=== PATIENT | male | born 1945 ===

== ENCOUNTER 2019-04-07 11:18 | Inpatient (IN) | payer MEDICAID ==
[2019-04-07] MEDS ORDERED: Sodium Chloride 0.9% 1,000 ML IV ONE ×3 (11:45→16:36)
[2019-04-07 11:59] LABS: BASO # 0.1 K/uL (0.0-0.2); BASO % 0.6 % (0.0-2.0); EOS # 0.2 K/uL (0.0-0.7); EOS % 2.2 % (0.0-4.0); HEMOGLOBIN 11.4 g/dL (12.0-18.0); LYMPH # 1.5 K/uL (1.0-4.3); LYMPH % 14.8 % (20.0-40.0); MEAN CELL VOLUME 86.2 fL (80.0-94.0); MEAN CORPUSCULAR HEMOGLOBIN 27.8 pg (27.0-31.0); MEAN CORPUSCULAR HGB CONC 32.3 g/dL (33.0-37.0); MEAN PLATELET VOLUME 10.8 fL (7.2-11.7); MONO # 1.2 K/uL (0.0-0.8); MONO % 12.1 % (0.0-10.0); NEUT # 7.2 K/uL (1.8-7.0); NEUT % 70.3 % (50.0-75.0); RBC 4.11 Mil/uL (4.40-5.90); RED CELL DISTRIBUTION WIDTH 16.6 % (11.5-14.5); WHITE BLOOD COUNT 10.3 K/uL (4.8-10.8)
[2019-04-07 12:04] LABS: SQUAMOUS EPITHIAL < 1 /hpf (0-5); URINE BILIRUBIN NEGATIVE (NEGATIVE); URINE BLOOD 2+ (NEGATIVE); URINE CLARITY Hazy (Clear); URINE COLOR Yellow (YELLOW); URINE GLUCOSE (UA) 3+ mg/dL (Normal); URINE LEUKOCYTE ESTERASE 3+ Leu/uL (Negative); URINE PROTEIN NEGATIVE (NEGATIVE); URINE UROBILINOGEN NORMAL mg/dL (0.2-1.0)
[2019-04-07] MEDS ORDERED: cefTRIAXone IV 1 gm in Dextros 50 ML IV ONE (12:36)
--- NOTE | 2019-04-07 12:55 | C.PDOC ---
History Of Present Illness 73-year-old male is brought to the ED by ambulance from his doctor's office for evaluation of elevated blood sugar noted prior to arrival. As per EMS, patient was found to be hiccupping and continues to do so in the ED. Patient denies fever, chills. Additional information limited because patient does not speak Persian. Time Seen by Provider: 04/07/19 11:27 Chief Complaint (Nursing): High Blood Sugar History Per: Patient History/Exam Limitations: no limitations Onset/Duration Of Symptoms: Hrs Current Symptoms Are (Timing): Still Present Additional History Per: Patient Past Medical History Reviewed: Historical Data, Nursing Documentation, Vital Signs Vital Signs: Last Vital Signs Temp 98.5 F 04/07/19 11:34 Pulse 67 04/07/19 11:34 Resp 20 04/07/19 11:34 BP 125/78 04/07/19 11:34 Pulse Ox 95 04/07/19 11:34 Primary Care Provider: Geoff De Jesus - Medical History PMH: Benign Prostatic Hyperplasia, Bronchitis, HIV, HTN, Hyperlipidemia Surgical History: Cholecystectomy Family History: States: Unknown Family Hx - Social History Hx Alcohol Use: No Hx Substance Use: No Review Of Systems Constitutional: Positive for: Other (elevated blood sugar, hiccuping ). Negative for: Fever, Chills Physical Exam - Physical Exam Appears: Non-toxic, No Acute Distress Skin: Normal Color, Warm, Dry Head: Atraumatic, Normacephalic Eye(s): bilateral: Normal Inspection Oral Mucosa: Moist Neck: Supple Chest: Symmetrical, No Deformity, No Tenderness Cardiovascular: Rhythm Regular, No Murmur Respiratory: Normal Breath Sounds, No Rales, No Rhonchi, No Wheezing Gastrointestinal/Abdominal: Soft, Tenderness (suprapubic ), No Guarding, No Rebound Extremity: Normal ROM, Capillary Refill (less than 2 seconds ) Neurological/Psych: Oriented x3, Normal Speech, Normal Cognition ED Course And Treatment - Laboratory Results Result Diagrams: 04/07/19 11:54 04/07/19 11:54 Lab Results: Troponin I < 0.0120 ng/mL (0.00-0.120) 04/07/19 11:54 Urine Color Yellow (YELLOW) 04/07/19 11:54 Urine Clarity Hazy (Clear) 04/07/19 11:54 Urine pH 6.0 (5.0-8.0) 04/07/19 11:54 Ur Specific [place] 1.022 (1.003-1.030) 04/07/19 11:54 Urine Protein Negative mg/dL (NEGATIVE) 04/07/19 11:54 Urine Glucose (UA) 3+ mg/dL (Normal) H 04/07/19 11:54 Urine Ketones Trace mg/dL (NEGATIVE) 04/07/19 11:54 Urine Blood 2+ (NEGATIVE) H 04/07/19 11:54 Urine Nitrate Negative (NEGATIVE) 04/07/19 11:54 Urine Bilirubin Negative (NEGATIVE) 04/07/19 11:54 Urine Urobilinogen Normal mg/dL (0.2-1.0) 04/07/19 11:54 Ur Leukocyte Esterase 3+ Roz/uL (Negative) H 04/07/19 11:54 Urine WBC (Auto) 179 /hpf (0-5) H 04/07/19 11:54 Urine RBC (Auto) 17 /hpf (0-3) H 04/07/19 11:54 Ur Squamous Epith Cells < 1 /hpf (0-5) 04/07/19 11:54 Lab Interpretation: Abnormal ECG: Interpreted By Nv ECG Rhythm: Sinus Rhythm ECG Interpretation: Normal Rate From EC O2 Sat by Pulse Oximetry: 95 (on RA) Pulse Ox Interpretation: Normal - CT Scan/US No standard instances Other Rad Studies (CT/US): Read By Radiologist, Radiology Report Reviewed CT/US Interpretation: FINDINGS: LOWER THORAX: Limited bilateral basilar dependent atelectasis identified with trace pericardial effusion. Cardiac size appears normal nevertheless. LIVER: Unremarkable. No gross lesion or ductal dilatation. GALLBLADDER AND BILE DUCTS: Prior cholecystectomy suggested. Clinically correlate. PANCREAS: Mildly atrophic but nonfocal pancreas. No significant peripancreatic reaction associated. SPLEEN: Unremarkable. ADRENALS: Unremarkable. No mass. KIDNEYS AND URETERS: Nonspecific limited streaky perinephric changes bilaterally. Bilateral kidneys otherwise unremarkable appearing. VASCULATURE: Unremarkable. No aortic aneurysm. No aortic atherosclerotic calcification or mural plaque present. BOWEL: Nonacute extensive sigmoid diverticular disease. Limited diverticular changes descending colon as well. No definite acute diverticulitis appreciated at this time.. No obstruction. No gross mural thickening. APPENDIX: Unremarkable. Normal appendix. PERITONEUM: Unremarkable. No free fluid. No free air. LYMPH NODES: Unremarkable. No enlarged lymph nodes. BLADDER: Urinary bladder is only mildly distended and mural thickening is not excluded. Pericystic reactive changes may indicate cystitis. Clinically correlate further. REPRODUCTIVE: Prominent prostate gland enlargement. 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 OTHER FINDINGS: None. IMPRESSION: 1. The urinary bladder is not fully distended and thickening of the wall is indeterminate however pericystic reactive changes are suspicious for cystitis. Clinically correlate further. 2. Enlarged prostate gland. 3. Nonacute left colonic diverticular changes concentrated at the sigmoid colon. 4. Nonspecific bilateral streaky perinephric changes without obstructive uropathy. 5. Prior cholecystectomy suggested. Clinically correlate. Progress Note: Bloodwork, urinalysis, CT A/P, EKG ordered and reviewed. Rocephin IV and IV Fluids given. Treated with additional IVF and Regular Insulin 5 units SQ Reassessment Condition: Improved Disposition Discussed With : Geoff De Jesus Doctor Will See Patient In The: Hospital - Disposition Disposition: HOSPITALIZED Disposition Time: 14:15 Condition: STABLE - POA Present On Arrival: None - Clinical Impression Clinical Impression: Hyperglycemia, UTI (urinary tract infection) - PA / DIVIDEND DEPOSIT VOUCHER CLERK / Resident Statement MD/DO has reviewed & agrees with the documentation as recorded. - Scribe Statement The provider has reviewed the documentation as recorded by the Scribe (Rahcel South) All medical record entries made by the Scribe were at my direction and personally dictated by me. I have reviewed the chart and agree that the record accurately reflects my personal performance of the history, physical exam, medical decision making, and the department course for this patient. I have also personally directed, reviewed, and agree with the discharge instructions and disposition. Decision To Admit - Pt Status Changed To: Hospital Disposition Of: Inpatient - Admit Certification Admit to Inpatient:: After my assessment, the patient will require hospitalization for at least two midnights. This is because of the severity of symptoms shown, intensity of services needed, and/or the medical risk in this patient being treated as an outpatient. - InPatient: Physician Admission Certification: I certify that this patient requires 2 or more midnights of care for the following reason:: Hyperglycemia. UTI - . Bed Request Type: Regular Admitting Physician: Geoff De Jesus Patient Diagnosis: Hyperglycemia, UTI (urinary tract infection)
[2019-04-07 13:03] LABS: ALB/GLOB RATIO 1.1 (1.0-2.1); ALBUMIN 3.8 g/dL (3.5-5.0); ALT/SGPT 37 U/L (21-72); AST/SGOT 39 U/L (17-59); BLOOD UREA NITROGEN 24 mg/dL (9-20); CALCIUM 9.3 mg/dl (8.6-10.4); GFR NON-AFRICAN AMERICAN 60; LIPASE 55 U/L (23-300)
--- NOTE | 2019-04-07 13:08 | CT ---
Date of service: 04/07/2019 PROCEDURE: CT Abdomen and Pelvis without intravenous contrast HISTORY: Pain COMPARISON: None. TECHNIQUE: Helical CT of the abdomen and pelvis was performed without oral or intravenous contrast as per referring physician request. Coronal and sagittal reformats were generated. Radiation dose: Total exam DLP = 484.54 mGy-cm. This CT exam was performed using one or more of the following dose reduction techniques: Automated exposure control, adjustment of the mA and/or kV according to patient size, and/or use of iterative reconstruction technique. FINDINGS: LOWER THORAX: Limited bilateral basilar dependent atelectasis identified with trace pericardial effusion. Cardiac size appears normal nevertheless. LIVER: Unremarkable. No gross lesion or ductal dilatation. GALLBLADDER AND BILE DUCTS: Prior cholecystectomy suggested. Clinically correlate. PANCREAS: Mildly atrophic but nonfocal pancreas. No significant peripancreatic reaction associated. SPLEEN: Unremarkable. ADRENALS: Unremarkable. No mass. KIDNEYS AND URETERS: Nonspecific limited streaky perinephric changes bilaterally. Bilateral kidneys otherwise unremarkable appearing. VASCULATURE: Unremarkable. No aortic aneurysm. No aortic atherosclerotic calcification or mural plaque present. BOWEL: Nonacute extensive sigmoid diverticular disease. Limited diverticular changes descending colon as well. No definite acute diverticulitis appreciated at this time.. No obstruction. No gross mural thickening. APPENDIX: Unremarkable. Normal appendix. PERITONEUM: Unremarkable. No free fluid. No free air. LYMPH NODES: Unremarkable. No enlarged lymph nodes. BLADDER: Urinary bladder is only mildly distended and mural thickening is not excluded. Pericystic reactive changes may indicate cystitis. Clinically correlate further. REPRODUCTIVE: Prominent prostate gland enlargement. 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 OTHER FINDINGS: None. IMPRESSION: 1. The urinary bladder is not fully distended and thickening of the wall is indeterminate however pericystic reactive changes are suspicious for cystitis. Clinically correlate further. 2. Enlarged prostate gland. 3. Nonacute left colonic diverticular changes concentrated at the sigmoid colon. 4. Nonspecific bilateral streaky perinephric changes without obstructive uropathy. 5. Prior cholecystectomy suggested. Clinically correlate.
[2019-04-07] MEDS ORDERED: (Novolin R) Insulin Human Regular 100 units/ml vial SC ONE ×2 (14:50→16:35)
[2019-04-07] MEDS ORDERED: (Novolin R) Insulin Human Regular 100 units/ml vial ONE ×2 (15:04→16:54)
[2019-04-07] MEDS: Sodium Chloride 0.9% 1,000 ML IV SCH (15:52)
[2019-04-07] MEDS: (Novolin R) Insulin Human Regular 100 units/ml vial SC SCH ×2 (16:53→21:52)
[2019-04-07 18:16] VITALS: RESP 20
--- NOTE | 2019-04-07 23:19 | CP.PCM.HP ---
Present on Admission - Present on Admission Any Indicators Present on Admission: Yes History of Uncontrolled Diabetes: Yes Past Patient History - Past Medical History & Family History Past Medical History?: Yes - Past Social History Smoking Status: Never Smoked - CARDIAC Hx Hypertension: Yes - PULMONARY Hx Bronchitis: Yes - NEUROLOGICAL Hx Neurological Disorder: Yes Other/Comment: VIT B12 DEF - HEENT Hx HEENT Problems: No - RENAL Hx Chronic Kidney Disease: No - ENDOCRINE/METABOLIC Hx Endocrine Disorders: Yes Hx Diabetes Mellitus Type 2: Yes - HEMATOLOGICAL/ONCOLOGICAL Hx Human Immunodeficiency Virus (HIV): Yes - INTEGUMENTARY Hx Dermatological Problems: No - MUSCULOSKELETAL/RHEUMATOLOGICAL Hx Musculoskeletal Disorders: Yes Hx Falls: No Other/Comment: VITAMIN D DEF - GASTROINTESTINAL Hx Gastrointestinal Disorders: No - GENITOURINARY/GYNECOLOGICAL Hx Genitourinary Disorders: Yes Hx Prostate Cancer: Yes - PSYCHIATRIC Hx Substance Use: No - SURGICAL HISTORY Hx Surgeries: Yes Hx Cholecystectomy: Yes Meds Allergies/Adverse Reactions: Allergies Allergy/AdvReac Type Severity Reaction Status Date / Time No Known Allergies Allergy Verified 04/07/19 11:35 Results - Vital Signs Recent Vital Signs: Last Vital Signs Temp 97.7 F 04/07/19 17:30 Pulse 74 04/07/19 17:30 Resp 20 04/07/19 17:30 BP 156/89 H 04/07/19 17:30 Pulse Ox 100 04/07/19 17:30 - Labs Result Diagrams: 04/07/19 11:54 04/07/19 11:54 Labs: Laboratory Results - last 24 hr 04/07/19 04/07/19 04/07/19 11:28 11:54 11:54 WBC 10.3 RBC 4.11 L Hgb 11.4 L Hct 35.4 MCV 86.2 MCH 27.8 MCHC 32.3 L RDW 16.6 H Plt Count 262 MPV 10.8 Neut % (Auto) 70.3 Lymph % (Auto) 14.8 L [place] % (Auto) 12.1 H Eos % (Auto) 2.2 Baso % (Auto) 0.6 Neut # (Auto) 7.2 H Lymph # (Auto) 1.5 [place] # (Auto) 1.2 H Eos # (Auto) 0.2 Baso # (Auto) 0.1 Sodium Potassium Chloride Carbon Dioxide Anion Gap BUN Creatinine Est GFR ( Amer) Est GFR (Non-Af Amer) POC Glucose (mg/dL) 475 H* Random Glucose Lactic Acid Calcium Total Bilirubin AST ALT Alkaline Phosphatase Troponin I Total Protein Albumin Globulin Albumin/Globulin Ratio Lipase Prostate Specific Ag Urine Color Yellow Urine Clarity Hazy Urine pH 6.0 Ur Specific [place] 1.022 Urine Protein Negative Urine Glucose (UA) 3+ H Urine Ketones Trace Urine Blood 2+ H Urine Nitrate Negative Urine Bilirubin Negative Urine Urobilinogen Normal Ur Leukocyte Esterase 3+ H Urine WBC (Auto) 179 H Urine RBC (Auto) 17 H Ur Squamous Epith Cells < 1 04/07/19 04/07/19 04/07/19 11:54 11:54 11:54 WBC RBC Hgb Hct MCV MCH MCHC RDW Plt Count MPV Neut % (Auto) Lymph % (Auto) [place] % (Auto) Eos % (Auto) Baso % (Auto) Neut # (Auto) Lymph # (Auto) [place] # (Auto) Eos # (Auto) Baso # (Auto) Sodium 131 L Potassium 4.7 Chloride 93 L Carbon Dioxide 28 Anion Gap 14 BUN 24 H Creatinine 1.2 Est GFR ( Amer) > 60 Est GFR (Non-Af Amer) 60 POC Glucose (mg/dL) Random Glucose 509 H* Lactic Acid 1.1 Calcium 9.3 Total Bilirubin 1.2 AST 39 ALT 37 Alkaline Phosphatase 94 Troponin I < 0.0120 Total Protein 7.2 Albumin 3.8 Globulin 3.4 Albumin/Globulin Ratio 1.1 Lipase 55 Prostate Specific Ag 27.7 H Urine Color Urine Clarity Urine pH Ur Specific [place] Urine Protein Urine Glucose (UA) Urine Ketones Urine Blood Urine Nitrate Urine Bilirubin Urine Urobilinogen Ur Leukocyte Esterase Urine WBC (Auto) Urine RBC (Auto) Ur Squamous Epith Cells 04/07/19 04/07/19 04/07/19 14:30 16:30 21:50 WBC RBC Hgb Hct MCV MCH MCHC RDW Plt Count MPV Neut % (Auto) Lymph % (Auto) [place] % (Auto) Eos % (Auto) Baso % (Auto) Neut # (Auto) Lymph # (Auto) [place] # (Auto) Eos # (Auto) Baso # (Auto) Sodium Potassium Chloride Carbon Dioxide Anion Gap BUN Creatinine Est GFR ( Amer) Est GFR (Non-Af Amer) POC Glucose (mg/dL) 416 H* 413 H* 258 H Random Glucose Lactic Acid Calcium Total Bilirubin AST ALT Alkaline Phosphatase Troponin I Total Protein Albumin Globulin Albumin/Globulin Ratio Lipase Prostate Specific Ag Urine Color Urine Clarity Urine pH Ur Specific [place] Urine Protein Urine Glucose (UA) Urine Ketones Urine Blood Urine Nitrate Urine Bilirubin Urine Urobilinogen Ur Leukocyte Esterase Urine WBC (Auto) Urine RBC (Auto) Ur Squamous Epith Cells
[2019-04-08] MEDS: Sodium Chloride 0.9% 1,000 ML IV SCH ×5 (01:30→22:45)
[2019-04-08] MEDS: (Novolin R) Insulin Human Regular 100 units/ml vial SC SCH ×5 (08:07→21:36)
[2019-04-08] MEDS: Enoxaparin 40 mg Syringe SC SCH (10:19)
--- NOTE | 2019-04-08 11:00 | HP ---
CHIEF COMPLAINT: Intractable hiccups and severe weakness. HISTORY OF PRESENT ILLNESS: This is a 73-year-old male, who is noncompliant with diet medications and followup. He has history of smoking and alcohol abuse. The patient was evaluated by me. His sugar in my office was 461 with blood pressure systolic. He has having intractable hiccups and his he felt he is about to . His hiccup was constant. He was having polyuria, polydipsia, polyphagia, generalized weakness, tiredness, anorexia, malaise, and fatigue. He denied any nausea. He has persistent vomiting as well. He felt weak, dizzy, and he felt like falling. There is no history of cough, sore throat, or runny nose. He denies any history of dysuria, hematuria, or pyuria. PAST MEDICAL HISTORY: Positive for BPH, diabetes, hypertension, and hyperlipidemia. SOCIAL HISTORY: Smoker and alcohol user. CURRENT MEDICATIONS: He is supposed to be on Aricept, vitamin D2, alogliptin, metformin, and Lipitor. Compliance is questionable. PHYSICAL EXAMINATION: GENERAL: An elderly male in distress with generalized weakness. VITAL SIGNS: Blood pressure 156/89, pulse 74, respiratory rate 20, and temperature 97.7. SKIN: Dry, poor turgor. No bruises, no purpura, no petechiae, and no ecchymosis. HEENT: Atraumatic and normocephalic. Negative pallor. Negative jaundice. Extraocular movements are intact. NECK: Supple. No JVD, no lymph node, no thyromegaly, and no carotid bruits. CHEST WALL: Bilateral symmetrical expansion. LUNGS: Clear. No rales, no rhonchi. CARDIOVASCULAR SYSTEM: S1 and S2, regular. ABDOMEN: Soft and nontender. Bowel sounds are positive. RECTAL: Enlarged prostate. EXTREMITIES: No clubbing, cyanosis, or edema. CENTRAL NERVOUS SYSTEM: Awake, alert, and oriented x3. Cranial nerves II through XII are normal. Power is 5/5 x4. Plantars are downgoing. ASSESSMENT: 1. Severe dehydration with low blood pressure. It is most likely due to hyperglycemia. 2. Urinary tract infection with obstructive uropathy with high prostate-specific antigen. 3. Type 2 diabetes, uncontrolled. 4. History of hypertension. PLAN: Admit. Detailed orders are written. Seen and examined. Geoff De Jesus MD
[2019-04-08] MEDS ORDERED: (Novolin R) Insulin Human Regular 100 units/ml vial SC SCH ×3 (12:10→16:30)
--- NOTE | 2019-04-08 12:14 | CARD ---
APPROVED REPORT Date of service: 04/07/2019 EKG Measurement Heart [id number] <Conclusion> Normal sinus rhythm Normal ECG
[2019-04-08] MEDS ORDERED: Glucagon Recombinant 1 mg Inj IM PRN ×2 (12:19→12:27)
[2019-04-08] MEDS ORDERED: Dextrose 50% SYRINGE Inj (50 ml) IV PRN ×2 (12:19→12:27)
[2019-04-08] MEDS ORDERED: Magnesium Hydroxide Susp 30 ml UD PO ONE (20:51)
[2019-04-08] MEDS ORDERED: (Lantus) Insulin Glargine, Recombinant SC SCH (22:00)
--- NOTE | 2019-04-08 23:05 | CP.PCM.PN ---
Subjective - Date & Time of Evaluation Date of Evaluation: 04/08/19 Time of Evaluation: 07:20 - Subjective Subjective: dict Objective - Vital Signs/Intake and Output Vital Signs (last 24 hours): Temp Pulse Resp BP Pulse Ox 97.7 F 80 20 106/62 96 04/08/19 15:39 04/08/19 15:39 04/08/19 15:39 04/08/19 15:39 04/08/19 15:39 Intake and Output: 04/08/19 04/09/19 18:59 06:59 Intake Total 1100 800 Balance 1100 800 - Medications Medications: Current Medications Chlorpromazine (Thorazine) 25 mg PO Q8 PRN PRN Reason: Hiccups Last Admin: 04/08/19 21:46 Dose: 25 mg Dextrose (Dextrose 50% Inj) 0 ml IV STAT PRN; Protocol PRN Reason: Hypoglycemia Protocol Dextrose (Glutose 15) 0 gm PO ONCE PRN; Protocol PRN Reason: Hypoglycemia Protocol Enoxaparin Sodium (Lovenox) 40 mg SC DAILY [facility] Last Admin: 04/08/19 10:19 Dose: 40 mg Glucagon (Glucagen Diagnostic Kit) 0 mg IM STAT PRN; Protocol PRN Reason: Hypoglycemia Protocol Ceftriaxone Sodium 1 gm/ (Sodium Chloride) 100 mls @ 100 mls/hr IVPB DAILY [facility]; Protocol Last Admin: 04/08/19 10:22 Dose: 100 mls/hr Sodium Chloride (Sodium Chloride 0.9%) 1,000 mls @ 100 mls/hr IV .Q10H [facility] Last Admin: 04/08/19 22:45 Dose: 100 mls/hr Dextrose (Dextrose 5% In Water 1000 Ml) 1,000 mls @ 0 mls/hr IV .Q0M PRN; Protocol PRN Reason: Hypoglycemia Protocol Insulin Glargine (Lantus) 20 unit SC HS [facility] Last Admin: 04/08/19 21:40 Dose: 20 units Insulin Human Regular (Novolin R) 0 unit SC ACHS [facility]; Protocol Last Admin: 04/08/19 21:36 Dose: Not Given Metformin HCl (Glucophage) 1,000 mg PO BID [facility] Last Admin: 04/08/19 17:14 Dose: 1,000 mg Phenazopyridine HCl (Pyridium) 200 mg PO BID [facility] Last Admin: 04/08/19 17:14 Dose: 200 mg Pneumococcal Polyvalent Vaccine (Pneumovax 23 Vaccine) 0.5 ml IM .ONCE ONE Stop: 04/09/19 10:01 Rosuvastatin Calcium (Crestor) 5 mg PO DIN [facility] Sitagliptin Phosphate (Januvia) 25 mg PO BID [facility] Last Admin: 04/08/19 17:14 Dose: 25 mg - Labs Labs: 04/07/19 11:54 04/07/19 11:54
[2019-04-09] MEDS: Sodium Chloride 0.9% 1,000 ML IV SCH ×3 (07:12→17:56)
[2019-04-09] MEDS: (Novolin R) Insulin Human Regular 100 units/ml vial SC SCH ×3 (07:34→17:55)
[2019-04-09 08:14] LABS: BASO # 0.1 K/uL (0.0-0.2); BASO % 0.8 % (0.0-2.0); EOS # 1.5 K/uL (0.0-0.7); EOS % 11.8 % (0.0-4.0); HEMOGLOBIN 10.6 g/dL (12.0-18.0); LYMPH # 3.2 K/uL (1.0-4.3); MEAN CELL VOLUME 84.7 fL (80.0-94.0); MEAN CORPUSCULAR HEMOGLOBIN 28.5 pg (27.0-31.0); MEAN CORPUSCULAR HGB CONC 33.6 g/dL (33.0-37.0); MEAN PLATELET VOLUME 10.3 fL (7.2-11.7); MONO # 1.7 K/uL (0.0-0.8); MONO % 13.8 % (0.0-10.0); NEUT # 5.9 K/uL (1.8-7.0); NEUT % 47.6 % (50.0-75.0); NRBC % 0.1 % (0.0-2.0); RBC 3.74 Mil/uL (4.40-5.90); RED CELL DISTRIBUTION WIDTH 16.7 % (11.5-14.5); WHITE BLOOD COUNT 12.3 K/uL (4.8-10.8)
[2019-04-09 08:40] LABS: ALB/GLOB RATIO 1.1 (1.0-2.1); ALBUMIN 3.1 g/dL (3.5-5.0); ALT/SGPT 30 U/L (21-72); AST/SGOT 25 U/L (17-59); BLOOD UREA NITROGEN 14 mg/dL (9-20); CALCIUM 8.9 mg/dl (8.6-10.4); GFR NON-AFRICAN AMERICAN > 60
[2019-04-09] MEDS: Enoxaparin 40 mg Syringe SC SCH (09:04)
[2019-04-09] MEDS ORDERED: Pneumococcal 23-Valent Vaccine IM ONE (10:00)
[2019-04-09 16:17] VITALS: BP 146/69; PULSE 69; TEMP 97.9; O2SAT 94
--- NOTE | 2019-04-10 00:02 | CP.PCM.DIS ---
Provider - Provider Date of Admission: 04/07/19 14:12 Attending physician: Geoff De Jesus MD Consults: 04/08/19 19:29 Urology Consult Routine Comment: Consulting Provider: Vicky Webb Consulting Physician: Vicky Webb Reason for Consult: psa 22 Time Spent in preparation of Discharge (in minutes): 30 Hospital Course - Lab Results Lab Results: Micro Results 04/07/19 12:58 Urine,Clean Catch Urine Culture - Final Escherichia Coli Most Recent Lab Values WBC 12.3 K/uL (4.8-10.8) H 04/09/19 07:58 RBC 3.74 Mil/uL (4.40-5.90) L 04/09/19 07:58 Hgb 10.6 g/dL (12.0-18.0) L 04/09/19 07:58 Hct 31.7 % (35.0-51.0) L 04/09/19 07:58 MCV 84.7 fL (80.0-94.0) 04/09/19 07:58 MCH 28.5 pg (27.0-31.0) 04/09/19 07:58 MCHC 33.6 g/dL (33.0-37.0) 04/09/19 07:58 RDW 16.7 % (11.5-14.5) H 04/09/19 07:58 Plt Count 291 K/uL (130-400) 04/09/19 07:58 MPV 10.3 fL (7.2-11.7) 04/09/19 07:58 Neut % (Auto) 47.6 % (50.0-75.0) L 04/09/19 07:58 Lymph % (Auto) 26.0 % (20.0-40.0) 04/09/19 07:58 [place] % (Auto) 13.8 % (0.0-10.0) H 04/09/19 07:58 Eos % (Auto) 11.8 % (0.0-4.0) H 04/09/19 07:58 Baso % (Auto) 0.8 % (0.0-2.0) 04/09/19 07:58 Neut # (Auto) 5.9 K/uL (1.8-7.0) 04/09/19 07:58 Lymph # (Auto) 3.2 K/uL (1.0-4.3) 04/09/19 07:58 [place] # (Auto) 1.7 K/uL (0.0-0.8) H 04/09/19 07:58 Eos # (Auto) 1.5 K/uL (0.0-0.7) H 04/09/19 07:58 Baso # (Auto) 0.1 K/uL (0.0-0.2) 04/09/19 07:58 Sodium 134 mmol/L (132-148) 04/09/19 07:58 Potassium 3.9 mmol/L (3.6-5.2) 04/09/19 07:58 Chloride 99 mmol/L (98-107) 04/09/19 07:58 Carbon Dioxide 27 mmol/L (22-30) 04/09/19 07:58 Anion Gap 12 (10-20) 04/09/19 07:58 BUN 14 mg/dL (9-20) 04/09/19 07:58 Creatinine 1.0 mg/dL (0.8-1.5) 04/09/19 07:58 Est GFR ( Amer) > 60 04/09/19 07:58 Est GFR (Non-Af Amer) > 60 04/09/19 07:58 POC Glucose (mg/dL) 213 mg/dL (65-110) H 04/09/19 16:27 Random Glucose 298 mg/dL (75-110) H D 04/09/19 07:58 Lactic Acid 1.1 mmol/L (0.7-2.1) 04/07/19 11:54 Calcium 8.9 mg/dl (8.6-10.4) 04/09/19 07:58 Phosphorus 2.7 mg/dL (2.5-4.5) 04/09/19 07:58 Magnesium 1.6 mg/dL (1.6-2.3) 04/09/19 07:58 Total Bilirubin 0.5 mg/dL (0.2-1.3) 04/09/19 07:58 AST 25 U/L (17-59) 04/09/19 07:58 ALT 30 U/L (21-72) 04/09/19 07:58 Alkaline Phosphatase 74 U/L (38-126) 04/09/19 07:58 Troponin I < 0.0120 ng/mL (0.00-0.120) 04/07/19 11:54 Total Protein 6.0 g/dL (6.3-8.3) L 04/09/19 07:58 Albumin 3.1 g/dL (3.5-5.0) L 04/09/19 07:58 Globulin 2.9 gm/dL (2.2-3.9) 04/09/19 07:58 Albumin/Globulin Ratio 1.1 (1.0-2.1) 04/09/19 07:58 Lipase 55 U/L (23-300) 04/07/19 11:54 Prostate Specific Ag 27.7 ng/mL (0.00-4.0) H 04/07/19 11:54 Urine Color Yellow (YELLOW) 04/07/19 11:54 Urine Clarity Hazy (Clear) 04/07/19 11:54 Urine pH 6.0 (5.0-8.0) 04/07/19 11:54 Ur Specific [place] 1.022 (1.003-1.030) 04/07/19 11:54 Urine Protein Negative mg/dL (NEGATIVE) 04/07/19 11:54 Urine Glucose (UA) 3+ mg/dL (Normal) H 04/07/19 11:54 Urine Ketones Trace mg/dL (NEGATIVE) 04/07/19 11:54 Urine Blood 2+ (NEGATIVE) H 04/07/19 11:54 Urine Nitrate Negative (NEGATIVE) 04/07/19 11:54 Urine Bilirubin Negative (NEGATIVE) 04/07/19 11:54 Urine Urobilinogen Normal mg/dL (0.2-1.0) 04/07/19 11:54 Ur Leukocyte Esterase 3+ Roz/uL (Negative) H 04/07/19 11:54 Urine WBC (Auto) 179 /hpf (0-5) H 04/07/19 11:54 Urine RBC (Auto) 17 /hpf (0-3) H 04/07/19 11:54 Ur Squamous Epith Cells < 1 /hpf (0-5) 04/07/19 11:54 Discharge Plan - Follow Up Plan Condition: GOOD Disposition: HOME/ ROUTINE Instructions: Urinary Tract Infections in Adults, Hyperglycemia, Adult, Cephalexin, Finasteride, Tamsulosin, Insulin Glargine Referrals: Geoff De Jesus MD [Staff Provider] -
--- NOTE | 2019-04-10 03:04 | DS ---
DISCHARGE DIAGNOSES: 1. Poorly controlled diabetes. 2. Dehydration. 3. Urinary tract infection due to Escherichia coli, which is pansensitive. 4. Elevated prostate-specific antigen, rule out benign prostatic hyperplasia versus malignant neoplasm of the prostate. HOSPITAL COURSE: This is a 73-year-old male with history of diabetes and hypertension. He came in because of hiccups. He denies polyuria, polydipsia, polyphagia, dysuria, or hematuria. The patient was admitted to the floor, started on antibiotics, Accu-Cheks, sliding scale. He was started on Lantus. He was instructed to continue Lantus at home. The patient agreed to take Lantus plus his oral medication plus Flomax, plus Proscar, and outpatient followup with Urology. CONDITION UPON DISCHARGE: Stable. Lungs were clear. Abdomen is soft and nontender. Bowel sounds are positive. Geoff De Jesus MD
--- NOTE | 2019-04-10 04:23 | PN ---
DATE: 04/10/2019 SUBJECTIVE: The patient has dysuria, frequency. His blood sugars are improving. The patient is afebrile. No shortness of breath. No chest pain. No nausea, vomiting. The patient has positive urine cultures for E. coli, which is pansensitive and his PSA is high. PHYSICAL EXAMINATION: VITAL SIGNS: Blood pressure is 169/84, pulse 75, respiratory rate 20, temperature 98.9. LUNGS: Clear. ABDOMEN: Soft, nontender. Bowel sounds are positive. ASSESSMENT: 1. High prostate-specific antigen, urinary tract infection, urology evaluation, intravenous antibiotics. 2. Type 2 diabetes, poorly controlled. 3. Hypertension. PLAN: Continue antibiotics. Follow culture. Monitor the patient. Geoff De Jesus MD
== END 2019-04-09 19:54 | disposition home or self-care (01) | DRG 294 ==
LOC: C.ER 11:18 → C.9E 14:12 → C.3T 16:25
PROVIDERS: ADMIT Internal Medicine; ATTEND Internal Medicine
DX: E11.65 Type 2 diabetes mellitus with hyperglycemia (principal); E86.0 Dehydration; N39.0 Urinary tract infection, site not specified; E53.8 Deficiency of other specified B group vitamins; Z21 Asymptomatic human immunodeficiency virus [HIV] infection status; I10 Essential (primary) hypertension; N13.8 Other obstructive and reflux uropathy; N40.1 Benign prostatic hyperplasia with lower urinary tract symptoms; I95.89 Other hypotension; B96.20 Unspecified Escherichia coli [E. coli] as the cause of diseases classified elsewhere; F17.210 Nicotine dependence, cigarettes, uncomplicated; Z85.46 Personal history of malignant neoplasm of prostate; Z91.11 Patient's noncompliance with dietary regimen; E78.5 Hyperlipidemia, unspecified; Z90.49 Acquired absence of other specified parts of digestive tract; Z91.14 Patient's other noncompliance with medication regimen